=== PATIENT | female | born 1975 | race African-American/Black ===

== ENCOUNTER 2018-12-18 08:20 | Emergency (ER) | payer BC ==
[~2018-12-18] VITALS: Ht 160 cm; Wt 100.0 kg
[2018-12-18] MEDS ORDERED: IBUPROFEN 800MG TABLET PO ONE (09:15)
[2018-12-18 10:14] VITALS: BP 147/74
== END 2018-12-18 10:18 | disposition home or self-care (01) ==
LOC: ER 08:20
DX: S29.012A Strain of muscle and tendon of back wall of thorax, initial encounter (principal); V43.52XA Car driver injured in collision with other type car in traffic accident, initial encounter; Y93.89 Activity, other specified; Y92.488 Other paved roadways as the place of occurrence of the external cause; I10 Essential (primary) hypertension; M47.892 Other spondylosis, cervical region; E11.9 Type 2 diabetes mellitus without complications; F17.210 Nicotine dependence, cigarettes, uncomplicated; Z88.6 Allergy status to analgesic agent
CPT/HCPCS: 72040; 72070; 99283

== ENCOUNTER 2019-10-15 06:07 | Inpatient (IN) | payer BC ==
[~2019-10-15] VITALS: Ht 160 cm; Wt 96.2 kg
[2019-10-15] MEDS ORDERED: LACTATED RINGERS 1,000 ML IV SCH ×2 (06:30→13:30)
[2019-10-15] MEDS ORDERED: METHYLENE BLUE 50 MG/10 ML AMP IV ONE (06:31)
[2019-10-15] MEDS ORDERED: SKIN ADHESIVE 0.7 GM EA TOP ONE (06:31)
[2019-10-15] MEDS ORDERED: BUPIVACAINE HCL/EPINEPHRINE 0.5%/0.0005 30ML ONE (06:32)
[2019-10-15] MEDS ORDERED: VASOPRESSIN 20 UNIT/ML 1ML ONE (06:32)
[2019-10-15 06:55] LABS: BASOPHILS % 0.8 % (0.0-2.0); EOSINOPHILS % 2.6 % (0.0-5.0); HEMATOCRIT. 37.7 % (36.0-48.0); HEMOGLOBIN. 12.3 g/dL (12.0-16.0); LYMPHOCYTES % 30.1 % (20.0-50.0); MEAN CORPUSCULAR HEMOGLOBIN 26.6 pg (28.0-32.0); MEAN CORPUSCULAR VOLUME 81.7 fL (81.0-99.0); MONOCYTES % 7.9 % (2.0-8.0); NEUTROPHILS % 58.6 % (40.0-76.0); PLATELET 180 x1000/uL (130-400); RED BLOOD CELL COUNT 4.61 mill/uL (4.2-5.4); RED CELL DISTRIBUTION WIDTH 14.3 % (11.6-14.6)
[2019-10-15 06:55] LABS: CLARITY URINE CLEAR (CLEAR); COLOR URINE YELLOW (YELLOW); KETONES URINE NEGATIVE (NEGATIVE); LEUKOCYTE ESTERASE URINE NEGATIVE (NEGATIVE); NITRITE URINE NEGATIVE (NEGATIVE); OCCULT BLOOD URINE TRACE (NEGATIVE); PROTEIN URINE NEGATIVE (NEGATIVE); SPECIFIC GRAVITY URINE 1.016 (1.005-1.030); UROBILINOGEN URINE 0.2 E.U./dL (0.2-1.0)
[2019-10-15 07:00] LABS: CHLORIDE 103 mEq/L (98-107)
[2019-10-15 07:03] LABS: PARTIAL THROMBOPLASTIN TIME 26.1 sec (23.4-31.0); PROTHROMBIN TIME 10.3 sec (9.6-11.0)
[2019-10-15 07:05] LABS: UCG SCREEN NEGATIVE
[2019-10-15] MEDS ORDERED: SUCCINYLCHOLINE CHLORIDE 200MG/10ML IV ONE (07:41)
[2019-10-15] MEDS ORDERED: PHENYLEPHRINE HCL 10 MG/ML 1ML (IV VIAL) IV ONE (07:41)
[2019-10-15] MEDS ORDERED: FENTANYL CITRATE/PF 50MCG/ML 2ML VIAL ONE ×5 (07:41→11:25)
[2019-10-15] MEDS ORDERED: NEOSTIGMINE METHYLSULFATE 1MG/ML 10 ML VIAL ONE (07:41)
[2019-10-15] MEDS ORDERED: ONDANSETRON HCL 4MG/2ML INJ ONE (07:41)
[2019-10-15] MEDS ORDERED: EPHEDRINE SULFATE 50MG/ML VIAL ONE (07:41)
[2019-10-15] MEDS ORDERED: SODIUM CHLORIDE 0.9% 10ML VIAL ONE (07:41)
[2019-10-15] MEDS ORDERED: CEFAZOLIN SODIUM 1000MG/VIAL ONE (07:41)
[2019-10-15] MEDS ORDERED: METOCLOPRAMIDE HCL 10MG/2ML VIAL ONE (07:41)
[2019-10-15] MEDS ORDERED: PROPOFOL 200MG/20ML VIAL IV ONE ×2 (07:41→11:32)
[2019-10-15] MEDS ORDERED: ROCURONIUM BROMIDE 10MG/ML VIAL 5ML IV ONE ×2 (07:41→08:09)
[2019-10-15] MEDS ORDERED: DEXAMETHASONE 4MG/ML 1ML VIAL ONE (07:41)
[2019-10-15] MEDS ORDERED: MIDAZOLAM HCL 2 MG/2 ML VIAL ONE (07:41)
[2019-10-15] MEDS ORDERED: GLYCOPYRROLATE 0.2 MG/ML 2ML VIAL ONE (07:41)
[2019-10-15] MEDS ORDERED: ATOR-2 PO (09:49)
[2019-10-15] MEDS ORDERED: METF-414 PO (09:49)
[2019-10-15] MEDS ORDERED: TRAM50TA3 PO (09:49)
[2019-10-15] MEDS ORDERED: LISI-648 PO (09:49)
[2019-10-15] MEDS ORDERED: SODIUM CHLORIDE 0.9% 1,000 ML IV ONE (10:59)
[2019-10-15] MEDS ORDERED: MORPHINE SULFATE 2 MG/ML CPJ (NOT FOR IM USE) IV PRN (11:00)
[2019-10-15] MEDS ORDERED: MEPERIDINE HCL/PF 25MG/ML CPJ IV PRN ×2 (11:00)
[2019-10-15] MEDS ORDERED: ONDANSETRON HCL 4MG/2ML INJ IV PRN (11:00)
[2019-10-15] MEDS ORDERED: ONDANSETRON INJ IV PRN (13:45)
[2019-10-15] MEDS ORDERED: DIPHENHYDRAMINE INJ IV PRN (13:45)
[2019-10-15] MEDS ORDERED: NALOXONE INJ IV PRN (13:45)
[2019-10-15] MEDS: HYDROMORPHONE HCL/PF 2MG/ML CPJ IV PRN ×2 (13:54→14:05)
[2019-10-15] MEDS: HYDROMORPHONE PCA 10MG/50ML IV PRN (13:59)
[2019-10-15 15:30] VITALS: BP 148/90
[2019-10-15 16:00] VITALS: BP 148/90
[2019-10-15] MEDS: METFORMIN HCL 500MG TABLET PO SCH (18:26)
[2019-10-15] MEDS ORDERED: INFLUENZA VIRUS VACCINE(AFLURIA) 0.5ML SYR IM ONE (19:30)
[2019-10-15 20:00] VITALS: BP 125/76
[2019-10-16] VITALS: BP 135/90
[2019-10-16 04:00] VITALS: BP 132/82
[2019-10-16 07:49] LABS: BASOPHILS % 0.2 % (0.0-2.0); HEMATOCRIT. 33.1 % (36.0-48.0); HEMOGLOBIN. 10.5 g/dL (12.0-16.0); LYMPHOCYTES % 12.4 % (20.0-50.0); MEAN CORPUSCULAR HEMOGLOBIN 26.1 pg (28.0-32.0); MEAN CORPUSCULAR VOLUME 82.6 fL (81.0-99.0); MEAN PLATELET VOLUME 10.9 fl (7.4-10.4); MONOCYTES % 10.5 % (2.0-8.0); NEUTROPHILS % 76.9 % (40.0-76.0); PLATELET 181 x1000/uL (130-400); RED BLOOD CELL COUNT 4.01 mill/uL (4.2-5.4); RED CELL DISTRIBUTION WIDTH 14.5 % (11.6-14.6)
[2019-10-16] MEDS: LISINOPRIL 20MG TABLET PO SCH (09:54)
[2019-10-16] MEDS: METFORMIN HCL 500MG TABLET PO SCH ×2 (09:54→18:50)
[2019-10-16] MEDS: HYDROCHLOROTHIAZIDE 12.5MG CAPSULE PO SCH (09:54)
[2019-10-16 12:00] VITALS: BP 119/72
[2019-10-16 16:00] VITALS: BP 120/74
[2019-10-16] MEDS: HYDROMORPHONE PCA 10MG/50ML IV PRN (19:02)
[2019-10-16 20:00] VITALS: BP 114/70
[2019-10-17] VITALS: BP 114/55
[2019-10-17 04:00] VITALS: BP 119/68
[2019-10-17 08:00] VITALS: BP 153/98
[2019-10-17] MEDS: HYDROCHLOROTHIAZIDE 12.5MG CAPSULE PO SCH (08:32)
[2019-10-17] MEDS: METFORMIN HCL 500MG TABLET PO SCH (08:32)
[2019-10-17] MEDS: LISINOPRIL 20MG TABLET PO SCH (08:32)
[2019-10-17 12:00] VITALS: BP 132/85
[2019-10-17 12:39] VITALS: BP_SYST 132; BP_SYST 153; BP_DIAS 85; BP_DIAS 98
== END 2019-10-17 16:17 | disposition home or self-care (01) | DRG 743 ==
LOC: OR 06:07 → 6EST 06:08
PROVIDERS: ADMIT Obstetrics & Gynecology Obstetrics; ATTEND Obstetrics & Gynecology Obstetrics
PROC: 0UT94ZZ Resection of Uterus, Percutaneous Endoscopic Approach (ICD-10-PCS; principal; 2019-10-15)
PROC: 0DNW4ZZ Release Peritoneum, Percutaneous Endoscopic Approach (ICD-10-PCS; 2019-10-15)
PROC: 8E0W4CZ Robotic Assisted Procedure of Trunk Region, Percutaneous Endoscopic Approach (ICD-10-PCS; 2019-10-15)
DX: D25.9 Leiomyoma of uterus, unspecified (principal); E11.9 Type 2 diabetes mellitus without complications; E78.5 Hyperlipidemia, unspecified; G89.29 Other chronic pain; N73.6 Female pelvic peritoneal adhesions (postinfective); F17.210 Nicotine dependence, cigarettes, uncomplicated; N92.0 Excessive and frequent menstruation with regular cycle; I10 Essential (primary) hypertension; Z98.891 History of uterine scar from previous surgery; Z98.51 Tubal ligation status
CPT/HCPCS: 36415; 71045; 74021; 76000; 80048; 81003; 81025; 82962; 88300; 88302; 88307; 93005; J0171; J0330; J0690; J1100; J1170; J2175; J2250; J2370; J2405; J2704; J2710; J2765; J3010; J3490; Q9968

== ENCOUNTER 2020-09-21 06:46 | Emergency (ER) | payer BC ==
[~2020-09-21] VITALS: Ht 162.6 cm; Wt 103.0 kg
[~2020-09-21 06:46] MED LIST: ATOR-2 PO; LISI-648 PO; METF-414 PO; TRAM50TA3 PO
[2020-09-21] MEDS ORDERED: IBUPROFEN 600MG TABLET PO STA (07:21)
[2020-09-21 07:47] LABS: EOSINOPHILS % 1.4 % (0.0-5.0); HEMATOCRIT. 40.6 % (36.0-48.0); HEMOGLOBIN. 13.3 g/dL (12.0-16.0); LYMPHOCYTES % 42.5 % (20.0-50.0); MEAN CORPUSCULAR HEMOGLOBIN 26.8 pg (28.0-32.0); MEAN CORPUSCULAR VOLUME 81.9 fL (81.0-99.0); MEAN PLATELET VOLUME 10.5 fl (7.4-10.4); MONOCYTES % 11.2 % (2.0-8.0); NEUTROPHILS % 43.9 % (40.0-76.0); PLATELET 177 x1000/uL (130-400); RED BLOOD CELL COUNT 4.96 mill/uL (4.2-5.4); RED CELL DISTRIBUTION WIDTH 13.9 % (11.6-14.6)
[2020-09-21 08:05] LABS: CHLORIDE 101 mEq/L (98-107)
[2020-09-21] MEDS ORDERED: INSULIN REGULAR (HUMULIN R) 300UNITS/3ML SUBCUT ONE (09:15)
[2020-09-21 09:54] VITALS: BP 132/84
== END 2020-09-21 10:00 | disposition home or self-care (01) ==
LOC: ER 06:46
DX: R07.89 Other chest pain (principal); E11.65 Type 2 diabetes mellitus with hyperglycemia; F17.200 Nicotine dependence, unspecified, uncomplicated; I10 Essential (primary) hypertension; Z88.6 Allergy status to analgesic agent; Z79.899 Other long term (current) drug therapy; Z98.890 Other specified postprocedural states
CPT/HCPCS: 36415; 71045; 80053; 81025; 83880; 84484; 85025; 93005; 96372; 99285; J1815

== ENCOUNTER 2022-06-06 03:39 | Inpatient (IN) | payer BC ==
[~2022-06-06] VITALS: Ht 162.6 cm; Wt 109.3 kg
[~2022-06-06 03:39] MED LIST changes: +ALLO100T PO; +CHOL2000 PO; +INSU200I4 SQ; +LEVO50TA8 PO; -LISI-648 PO; +LOSA50TA41 PO; -METF-414 PO; +OLME1TAB88 MT; +SEMA0.25 SQ; +TRAM50TA PO; -TRAM50TA3 PO
[2022-06-06] MEDS ORDERED: ONDANSETRON HCL 4MG/2ML INJ IV ONE (05:30)
[2022-06-06] MEDS ORDERED: MORPHINE SULFATE 4 MG/ML CPJ (NOT FOR IM USE) IV ONE ×2 (05:30→08:45)
[2022-06-06 06:03] LABS: CHLORIDE 101 mEq/L (98-107)
[2022-06-06 06:12] LABS: ETHANOL BLOOD < 10 mg/dL
[2022-06-06 07:47] LABS: RED BLOOD CELL COUNT 4.95 mill/uL (4.2-5.4)
[2022-06-06 07:48] LABS: MEAN CORPUSCULAR VOLUME 80.7 fL (81.0-99.0)
[2022-06-06 07:49] LABS: MEAN CORPUSCULAR HEMOGLOBIN 26.5 pg (28.0-32.0)
[2022-06-06 07:50] LABS: HEMOGLOBIN. 13.1 g/dL (12.0-16.0); MEAN PLATELET VOLUME 10.6 fl (7.4-10.4); PLATELET 195 x1000/uL (130-400)
[2022-06-06 08:05] LABS: HCG SCREEN NEGATIVE; PLATELET ESTIMATE NORMAL
[2022-06-06 11:30] VITALS: BP 117/82
[2022-06-06 11:42] VITALS: BP 117/82
[2022-06-06] MEDS ORDERED: CLONIDINE 0.1MG TABLET PO PRN (12:15)
[2022-06-06] MEDS ORDERED: ENOXAPARIN 40MG/0.4ML SYR SUBCUT SCH (12:15)
[2022-06-06] MEDS: SODIUM CHLORIDE 0.9% 1,000 ML IV SCH ×3 (12:15→21:21)
[2022-06-06] MEDS ORDERED: ACETAMINOPHEN 325MG TABLET PO PRN (12:15)
[2022-06-06] MEDS ORDERED: MAGNESIUM/ALUMINUM HYDROXIDE/SIMETHICONE 30ML UDC PO PRN (12:15)
[2022-06-06] MEDS ORDERED: IPRATROPIUM/ALBUTEROL 0.5-3(2.5)MG/3ML NEB NEB PRN (12:15)
[2022-06-06] MEDS ORDERED: NALOXONE HCL 0.4MG/ML VIAL IV PRN (12:30)
[2022-06-06] MEDS ORDERED: DEXTROSE 50% WATER 50ML SYRINGE IV PRN (12:30)
[2022-06-06] MEDS: MORPHINE SULFATE 2 MG/ML CPJ (NOT FOR IM USE) IV PRN ×4 (12:45→21:02)
[2022-06-06] MEDS: ENOXAPARIN 30MG/0.3ML SYR SUBCUT SCH ×2 (12:46→21:03)
[2022-06-06] MEDS: INSULIN LISPRO 100 UNITS/ML SUBCUT SCH ×3 (13:39→21:20)
[2022-06-06] MEDS: INSULIN GLARGINE 100 UNITS/ML SUBCUT SCH (13:40)
[2022-06-06 16:00] VITALS: BP 95/59
[2022-06-06] MEDS: DICLOFENAC SODIUM 1% GEL 50GM TOP SCH ×3 (16:03→21:00)
[2022-06-06] MEDS: BLOOD SUGAR DIAGNOSTIC STRIP TEST SCH ×2 (17:32→21:21)
[2022-06-06 20:00] VITALS: BP 98/64
[2022-06-06] MEDS: ONDANSETRON HCL 4MG/2ML INJ IV PRN (21:02)
[2022-06-06] MEDS: ATORVASTATIN CALCIUM 40MG TABLET PO SCH (21:03)
[2022-06-07] VITALS: BP 95/62
[2022-06-07] MEDS: SODIUM CHLORIDE 0.9% 1,000 ML IV SCH ×6 (00:53→21:04)
[2022-06-07 04:00] VITALS: BP_SYST 130; BP_SYST 95; BP_DIAS 52; BP_DIAS 66
[2022-06-07] MEDS: BLOOD SUGAR DIAGNOSTIC STRIP TEST SCH ×4 (06:36→21:36)
[2022-06-07] MEDS: MORPHINE SULFATE 2 MG/ML CPJ (NOT FOR IM USE) IV PRN ×4 (07:11→22:28)
[2022-06-07] MEDS: LEVOTHYROXINE SODIUM 50MCG TABLET PO SCH (07:44)
[2022-06-07] MEDS: INSULIN LISPRO 100 UNITS/ML SUBCUT SCH ×4 (07:50→21:23)
[2022-06-07 08:00] VITALS: BP 98/54
[2022-06-07 08:23] LABS: HEMATOCRIT. 35.9 % (36.0-48.0); HEMOGLOBIN. 12.1 g/dL (12.0-16.0); MEAN CORPUSCULAR HEMOGLOBIN 27.4 pg (28.0-32.0); MEAN CORPUSCULAR VOLUME 81.6 fL (81.0-99.0); PLATELET 160 x1000/uL (130-400); RED CELL DISTRIBUTION WIDTH 14.1 % (11.6-14.6)
[2022-06-07] MEDS: DICLOFENAC SODIUM 1% GEL 50GM TOP SCH ×4 (09:00→21:05)
[2022-06-07] MEDS ORDERED: SODIUM POLYSTYRENE SULFONATE 15 G/60 ML BOT PO NR ×2 (09:15→09:30)
[2022-06-07] MEDS ORDERED: FUROSEMIDE 100MG/10ML VIAL IV NR (09:26)
[2022-06-07] MEDS ORDERED: CALCIUM CHLORIDE 1GM/10ML SYR IV NR (09:30)
[2022-06-07] MEDS ORDERED: DEXTROSE 50% WATER 50ML SYRINGE IV NR (09:30)
[2022-06-07] MEDS ORDERED: ALBUTEROL (0.083%) 2.5MG/3ML NEB HHN NR (09:30)
[2022-06-07] MEDS ORDERED: SODIUM BICARBONATE 8.4% 1 MEQ/ML 50ML SYR IV NR (09:30)
[2022-06-07] MEDS: LIDOCAINE 5% PATCH TOP SCH (10:15)
[2022-06-07] MEDS: INSULIN GLARGINE 100 UNITS/ML SUBCUT SCH (10:17)
[2022-06-07] MEDS: ENOXAPARIN 30MG/0.3ML SYR SUBCUT SCH ×2 (10:59→21:06)
[2022-06-07] MEDS ORDERED: INSULIN REGULAR (HUMULIN R) UD 100 UNITS/ML SYR IV NR (11:00)
[2022-06-07 12:00] VITALS: BP 102/64
[2022-06-07] MEDS ORDERED: CALCIUM GLUCONATE 1GM PREMIX 50 ML IV SCH (15:00)
[2022-06-07 16:00] VITALS: BP 113/66
[2022-06-07 20:27] LABS: HEMATOCRIT. 34.4 % (36.0-48.0); HEMOGLOBIN. 11.3 g/dL (12.0-16.0); MEAN CORPUSCULAR HEMOGLOBIN 27.2 pg (28.0-32.0); MEAN PLATELET VOLUME 11.9 fl (7.4-10.4); PLATELET 167 x1000/uL (130-400); RED BLOOD CELL COUNT 4.15 mill/uL (4.2-5.4); RED CELL DISTRIBUTION WIDTH 14.2 % (11.6-14.6)
[2022-06-07 20:40] LABS: HCG SCREEN NEGATIVE
[2022-06-07 20:45] VITALS: BP 90/44
[2022-06-07 21:16] LABS: CHLORIDE 97 mEq/L (98-107)
[2022-06-07] MEDS: ATORVASTATIN CALCIUM 40MG TABLET PO SCH (21:21)
[2022-06-07 21:25] LABS: PHOSPHORUS 3.4 mg/dL (2.5-4.9)
[2022-06-07] MEDS: CEFEPIME 2,000 MG in DEXT 5% WATER 100 ML IV SCH (22:12)
[2022-06-07] MEDS: METRONIDAZOLE 500MG TABLET PO SCH (22:16)
[2022-06-07] MEDS: ONDANSETRON HCL 4MG/2ML INJ IV PRN (22:29)
[2022-06-07 23:00] LABS: PLATELET ESTIMATE NORMAL
[2022-06-07 23:10] LABS: PLATELET ESTIMATE NORMAL
[2022-06-08 00:18] VITALS: BP 112/62
[2022-06-08] MEDS ORDERED: MAGNESIUM 2 G PREMIX 50 ML IV NR (01:00)
[2022-06-08] MEDS ORDERED: CALCIUM GLUCONATE 1GM PREMIX 50 ML IV NR (01:00)
[2022-06-08] MEDS: MORPHINE SULFATE 2 MG/ML CPJ (NOT FOR IM USE) IV PRN ×3 (03:03→17:41)
[2022-06-08 04:00] VITALS: BP_SYST 100; BP_SYST 112; BP_DIAS 63; BP_DIAS 66
[2022-06-08] MEDS: METRONIDAZOLE 500MG TABLET PO SCH ×3 (05:46→23:01)
[2022-06-08 06:43] LABS: HEMOGLOBIN. 11.1 g/dL (12.0-16.0); MEAN CORPUSCULAR HEMOGLOBIN 26.7 pg (28.0-32.0); MEAN CORPUSCULAR VOLUME 81.8 fL (81.0-99.0); MEAN PLATELET VOLUME 11.3 fl (7.4-10.4); PLATELET 143 x1000/uL (130-400); RED BLOOD CELL COUNT 4.16 mill/uL (4.2-5.4); RED CELL DISTRIBUTION WIDTH 14.4 % (11.6-14.6)
[2022-06-08 06:46] LABS: PHOSPHORUS 3.9 mg/dL (2.5-4.9)
[2022-06-08] MEDS: BLOOD SUGAR DIAGNOSTIC STRIP TEST SCH ×4 (07:40→21:51)
[2022-06-08 08:00] VITALS: BP 102/55
[2022-06-08] MEDS: SODIUM CHLORIDE 0.9% 1,000 ML IV SCH ×2 (09:17→17:35)
[2022-06-08] MEDS: CEFEPIME 2,000 MG in DEXT 5% WATER 100 ML IV SCH ×2 (09:17→21:52)
[2022-06-08] MEDS: ENOXAPARIN 30MG/0.3ML SYR SUBCUT SCH (09:17)
[2022-06-08] MEDS: LEVOTHYROXINE SODIUM 50MCG TABLET PO SCH (09:17)
[2022-06-08] MEDS: DICLOFENAC SODIUM 1% GEL 50GM TOP SCH ×4 (09:18→21:51)
[2022-06-08] MEDS: LIDOCAINE 5% PATCH TOP SCH (09:18)
[2022-06-08] MEDS: INSULIN GLARGINE 100 UNITS/ML SUBCUT SCH (09:19)
[2022-06-08] MEDS: INSULIN LISPRO 100 UNITS/ML SUBCUT SCH ×4 (09:25→22:00)
[2022-06-08] MEDS ORDERED: CALCIUM GLUCONATE 1GM PREMIX 50 ML IV SCH (09:30)
[2022-06-08 11:18] LABS: CLARITY URINE TURBID (CLEAR); COLOR URINE DARK YELLOW (YELLOW); KETONES URINE TRACE (NEGATIVE); LEUKOCYTE ESTERASE URINE TRACE (NEGATIVE); NITRITE URINE NEGATIVE (NEGATIVE); OCCULT BLOOD URINE 1+ (NEGATIVE); PROTEIN URINE 2+ (NEGATIVE); SPECIFIC GRAVITY URINE 1.022 (1.005-1.030); UROBILINOGEN URINE 0.2 E.U./dL (0.2-1.0)
[2022-06-08 12:00] VITALS: BP 110/70
[2022-06-08 13:03] LABS: BG BASE EXCESS -8.9 mmol/L (-2.0-2.0); BG CARBOXYHEMOGLOBIN 0.3 % (0.5-1.5); BG DEOXYHEMOGLOBIN 8.5 % (0.0-5.0); BG FRACTION INSPIRED OXYGEN 30; BG HCO3 ACT 17.6 mmol/L (22.0-26.0); BG METHEMOGLOBIN 0.3 % (0.0-1.5); BG OXYGEN SATURATION 91.4 % (92.0-98.5); BG OXYHEMOGLOBIN 90.9 % (94.0-97.0); BG PCO2 40.1 mmHg (35.0-45.0); BG PH 7.259 (7.350-7.450); BG PO2 65.3 mmHg (75.0-100.0); BG SAMPLE SITE RIGHT RADIAL; BG TOTAL HEMOGLOBIN 11.2 g/dL (12.0-18.0); BG VENT MODE NASAL CANNULA
[2022-06-08] MEDS: CALCIUM GLUCONATE 1GM PREMIX 50 ML IV SCH ×2 (13:44→21:52)
[2022-06-08 15:39] LABS: PLATELET ESTIMATE NORMAL
[2022-06-08 16:00] VITALS: BP 102/59
[2022-06-08 20:00] VITALS: BP 99/54
[2022-06-08] MEDS: ATORVASTATIN CALCIUM 40MG TABLET PO SCH (21:50)
[2022-06-08] MEDS ORDERED: INSULIN REGULAR 100U/100ML PMX 100 ML IV SCH (23:30)
[2022-06-08] MEDS ORDERED: DEXTROSE 50% WATER 50ML SYRINGE IV PRN ×2 (23:30)
[2022-06-08] MEDS ORDERED: BLOOD SUGAR DIAGNOSTIC STRIP TEST SCH (23:30)
[2022-06-09] VITALS (38 sets, daily range): BP systolic 97–150; BP diastolic 52–100
[2022-06-09] MEDS ORDERED: DEXT 5%/0.9% NACL KCL 20MEQ/L 1,000 ML IV ONE ×2 (01:00→15:45)
[2022-06-09] MEDS: SODIUM CHLORIDE 0.9% 1,000 ML IV SCH ×2 (01:42→08:43)
[2022-06-09] MEDS: ONDANSETRON HCL 4MG/2ML INJ IV PRN ×2 (02:53→21:51)
[2022-06-09] MEDS: MORPHINE SULFATE 2 MG/ML CPJ (NOT FOR IM USE) IV PRN ×3 (02:54→14:13)
[2022-06-09] MEDS: METRONIDAZOLE 500MG TABLET PO SCH ×3 (05:37→21:51)
[2022-06-09] MEDS: CALCIUM GLUCONATE 1GM PREMIX 50 ML IV SCH ×3 (05:38→21:48)
[2022-06-09] MEDS: BLOOD SUGAR DIAGNOSTIC STRIP TEST SCH ×10 (06:15→23:01)
[2022-06-09 06:32] LABS: HEMATOCRIT. 30.2 % (36.0-48.0); MEAN CORPUSCULAR HEMOGLOBIN 26.8 pg (28.0-32.0); MEAN CORPUSCULAR VOLUME 81.2 fL (81.0-99.0); MEAN PLATELET VOLUME 10.6 fl (7.4-10.4); PLATELET 134 x1000/uL (130-400); RED BLOOD CELL COUNT 3.72 mill/uL (4.2-5.4); RED CELL DISTRIBUTION WIDTH 14.2 % (11.6-14.6)
[2022-06-09 07:00] LABS: CHLORIDE 98 mEq/L (98-107)
[2022-06-09 07:19] LABS: HDL CHOLESTEROL 14 mg/dL (40-59); LDL CHOLESTEROL 25 mg/dL (5-100); PHOSPHORUS 4.9 mg/dL (2.5-4.9)
[2022-06-09] MEDS: INSULIN LISPRO 100 UNITS/ML SUBCUT SCH ×2 (08:09→13:04)
[2022-06-09] MEDS ORDERED: INSULIN GLARGINE 100 UNITS/ML SUBCUT SCH (10:00)
[2022-06-09] MEDS: CEFEPIME 2,000 MG in DEXT 5% WATER 100 ML IV SCH ×2 (11:14→21:47)
[2022-06-09] MEDS: ENOXAPARIN 40MG/0.4ML SYR SUBCUT SCH (11:14)
[2022-06-09] MEDS: LIDOCAINE 5% PATCH TOP SCH (11:14)
[2022-06-09] MEDS: LEVOTHYROXINE SODIUM 50MCG TABLET PO SCH (11:14)
[2022-06-09] MEDS ORDERED: SODIUM BICARBONATE 8.4% 1 MEQ/ML 50ML SYR IV NR (15:30)
[2022-06-09] MEDS ORDERED: SODIUM BICARBONATE 150 MEQ in DEXTROSE 5% WATER 1,000 ML IV SCH (16:00)
[2022-06-09] MEDS: INSULIN REGULAR 100U/100ML PMX 100 ML IV SCH ×2 (16:29→21:52)
[2022-06-09 16:57] LABS: HEMATOCRIT. 30.4 % (36.0-48.0); HEMOGLOBIN. 10.2 g/dL (12.0-16.0); MEAN CORPUSCULAR HEMOGLOBIN 26.9 pg (28.0-32.0); MEAN CORPUSCULAR VOLUME 80.6 fL (81.0-99.0); MEAN PLATELET VOLUME 10.5 fl (7.4-10.4); PLATELET 170 x1000/uL (130-400); RED BLOOD CELL COUNT 3.77 mill/uL (4.2-5.4); RED CELL DISTRIBUTION WIDTH 14.6 % (11.6-14.6)
[2022-06-09 18:10] LABS: INR 1.1; PARTIAL THROMBOPLASTIN TIME 35.6 sec (23.4-31.0); PROTHROMBIN TIME 11.4 sec (9.6-11.0)
[2022-06-09 18:33] LABS: HEPATITIS B SURFACE ANTIGEN NEGATIVE
[2022-06-09] MEDS ORDERED: INSULIN REGULAR 100U/100ML PMX 100 ML IV SCH ×3 (18:35→21:04)
[2022-06-09] MEDS ORDERED: LIDOCAINE HCL 1% 10 MG/ML 10ML VIAL ONE (18:52)
[2022-06-09] MEDS ORDERED: FENOFIBRATE NANOCRYSTALLIZED 48MG TABLET PO NR (19:30)
[2022-06-09] MEDS: IPRATROPIUM/ALBUTEROL 0.5-3(2.5)MG/3ML NEB HHN SCH (20:00)
[2022-06-09] MEDS ORDERED: WATER IV SCH (21:30)
[2022-06-09] MEDS ORDERED: SODIUM BICARBONATE IV SCH (21:30)
[2022-06-09] MEDS ORDERED: SODIUM BICARBONATE 150 MEQ in DEXT 10% WATER 1,000 ML IV SCH (21:30)
[2022-06-09] MEDS ORDERED: DEXTROSE 10% IV SCH (21:30)
[2022-06-09] MEDS: ATORVASTATIN CALCIUM 40MG TABLET PO SCH (21:51)
[2022-06-09] MEDS: KETOROLAC 15MG/ML VIAL IV PRN (22:25)
[2022-06-09 22:42] LABS: PLATELET ESTIMATE NORMAL
[2022-06-09 22:54] LABS: PLATELET ESTIMATE NORMAL
[2022-06-10] VITALS (73 sets, daily range): BP systolic 101–159; BP diastolic 24–88
[2022-06-10] MEDS: BLOOD SUGAR DIAGNOSTIC STRIP TEST SCH ×24 (00:13→23:47)
[2022-06-10] MEDS: MORPHINE SULFATE 4 MG/ML CPJ (NOT FOR IM USE) IV PRN ×2 (00:25→21:06)
[2022-06-10] MEDS: IPRATROPIUM/ALBUTEROL 0.5-3(2.5)MG/3ML NEB HHN SCH ×6 (01:11→20:05)
[2022-06-10] MEDS: KCL 20MEQ/100ML PREMIX 100 ML IV SCH ×3 (01:30→04:45)
[2022-06-10] MEDS ORDERED: INSULIN REGULAR 100U/100ML PMX 100 ML IV SCH (01:38)
[2022-06-10 05:42] LABS: HEMATOCRIT. 30.4 % (36.0-48.0); HEMOGLOBIN. 9.8 g/dL (12.0-16.0); MEAN CORPUSCULAR HEMOGLOBIN 26.2 pg (28.0-32.0); MEAN CORPUSCULAR VOLUME 81.2 fL (81.0-99.0); MEAN PLATELET VOLUME 10.3 fl (7.4-10.4); PLATELET 164 x1000/uL (130-400); RED BLOOD CELL COUNT 3.75 mill/uL (4.2-5.4); RED CELL DISTRIBUTION WIDTH 14.5 % (11.6-14.6)
[2022-06-10 05:43] LABS: CHLORIDE 95 mEq/L (98-107)
[2022-06-10] MEDS: CALCIUM GLUCONATE 1GM PREMIX 50 ML IV SCH ×2 (05:53→21:34)
[2022-06-10] MEDS: METRONIDAZOLE 500MG TABLET PO SCH ×3 (05:53→21:03)
[2022-06-10] MEDS: KETOROLAC 15MG/ML VIAL IV PRN (05:53)
[2022-06-10 05:55] LABS: PHOSPHORUS 5.6 mg/dL (2.5-4.9)
[2022-06-10] MEDS: LEVOTHYROXINE SODIUM 50MCG TABLET PO SCH (06:30)
[2022-06-10] MEDS: CEFEPIME 2,000 MG in DEXT 5% WATER 100 ML IV SCH ×2 (08:35→21:04)
[2022-06-10] MEDS: ENOXAPARIN 40MG/0.4ML SYR SUBCUT SCH (08:36)
[2022-06-10] MEDS: FENOFIBRATE NANOCRYSTALLIZED 145MG TABLET PO SCH (08:37)
[2022-06-10] MEDS: LIDOCAINE 5% PATCH TOP SCH (08:43)
[2022-06-10] MEDS: HYDROXYZINE 25MG TABLET PO PRN ×2 (08:55→16:21)
[2022-06-10] MEDS: SODIUM CHLORIDE 23.4% 154 MEQ in DEXT 10% WATER 1,000 ML IV SCH (08:59)
[2022-06-10 16:14] LABS: BG BASE EXCESS -2.5 mmol/L (-2.0-2.0); BG CARBOXYHEMOGLOBIN 0.3 % (0.5-1.5); BG DEOXYHEMOGLOBIN 5.3 % (0.0-5.0); BG FRACTION INSPIRED OXYGEN 100; BG HCO3 ACT 22.9 mmol/L (22.0-26.0); BG METHEMOGLOBIN 0.2 % (0.0-1.5); BG OXYGEN SATURATION 94.7 % (92.0-98.5); BG OXYHEMOGLOBIN 94.2 % (94.0-97.0); BG PCO2 41.8 mmHg (35.0-45.0); BG PH 7.356 (7.350-7.450); BG PO2 75.4 mmHg (75.0-100.0); BG SAMPLE SITE RIGHT RADIAL; BG TOTAL HEMOGLOBIN 11.4 g/dL (12.0-18.0); BG VENT MODE HIGH FLOW
[2022-06-10] MEDS: ACETAMINOPHEN 325MG TABLET PO PRN (16:42)
[2022-06-10] MEDS ORDERED: HYDROXYZINE 25MG TABLET PO PRN (19:15)
[2022-06-10] MEDS: ATORVASTATIN CALCIUM 40MG TABLET PO SCH (21:03)
[2022-06-10 22:30] LABS: PLATELET ESTIMATE NORMAL
[2022-06-11] VITALS (75 sets, daily range): BP systolic 95–160; BP diastolic 59–97
[2022-06-11] MEDS: IPRATROPIUM/ALBUTEROL 0.5-3(2.5)MG/3ML NEB HHN SCH ×6 (00:26→20:20)
[2022-06-11] MEDS: BLOOD SUGAR DIAGNOSTIC STRIP TEST SCH ×18 (01:43→21:14)
[2022-06-11 05:17] LABS: HEMATOCRIT. 26.5 % (36.0-48.0); HEMOGLOBIN. 8.8 g/dL (12.0-16.0); MEAN CORPUSCULAR HEMOGLOBIN 26.3 pg (28.0-32.0); MEAN CORPUSCULAR VOLUME 79.6 fL (81.0-99.0); MEAN PLATELET VOLUME 10.3 fl (7.4-10.4); PLATELET 163 x1000/uL (130-400); RED BLOOD CELL COUNT 3.34 mill/uL (4.2-5.4); RED CELL DISTRIBUTION WIDTH 14.7 % (11.6-14.6)
[2022-06-11 05:30] LABS: CHLORIDE 101 mEq/L (98-107)
[2022-06-11 05:40] LABS: HDL CHOLESTEROL 17 mg/dL (40-59); LDL CHOLESTEROL 29 mg/dL (5-100); PHOSPHORUS 5.1 mg/dL (2.5-4.9)
[2022-06-11] MEDS: METRONIDAZOLE 500MG TABLET PO SCH ×2 (05:44→13:15)
[2022-06-11] MEDS: ACETAMINOPHEN 325MG TABLET PO PRN (05:44)
[2022-06-11] MEDS: LEVOTHYROXINE SODIUM 50MCG TABLET PO SCH (07:05)
[2022-06-11] MEDS: CEFEPIME 2,000 MG in DEXT 5% WATER 100 ML IV SCH ×2 (08:15→22:14)
[2022-06-11] MEDS: CALCIUM GLUCONATE 1GM PREMIX 50 ML IV SCH (08:15)
[2022-06-11] MEDS: SODIUM CHLORIDE 23.4% 154 MEQ in DEXT 10% WATER 1,000 ML IV SCH (09:57)
[2022-06-11] MEDS: FENOFIBRATE NANOCRYSTALLIZED 145MG TABLET PO SCH (10:15)
[2022-06-11 10:18] LABS: BG BASE EXCESS -3.3 mmol/L (-2.0-2.0); BG CARBOXYHEMOGLOBIN 0.2 % (0.5-1.5); BG FRACTION INSPIRED OXYGEN 100; BG HCO3 ACT 22.6 mmol/L (22.0-26.0); BG METHEMOGLOBIN 0.9 % (0.0-1.5); BG OXYHEMOGLOBIN 95.9 % (94.0-97.0); BG PCO2 44.7 mmHg (35.0-45.0); BG PH 7.322 (7.350-7.450); BG PO2 103.6 mmHg (75.0-100.0); BG SAMPLE SITE RIGHT RADIAL; BG TOTAL HEMOGLOBIN 9.9 g/dL (12.0-18.0); BG VENT MODE HIGH FLOW
[2022-06-11 10:21] LABS: NUCLEATED RED BLOOD CELLS 1 /100 WBC
[2022-06-11 10:22] LABS: PLATELET ESTIMATE NORMAL
[2022-06-11] MEDS ORDERED: AZITHROMYCIN 500 MG TABLET PO SCH (10:30)
[2022-06-11] MEDS: LIDOCAINE 5% PATCH TOP SCH (10:31)
[2022-06-11] MEDS: MORPHINE SULFATE 4 MG/ML CPJ (NOT FOR IM USE) IV PRN ×3 (10:33→23:56)
[2022-06-11] MEDS: ENOXAPARIN 40MG/0.4ML SYR SUBCUT SCH (10:41)
[2022-06-11] MEDS ORDERED: AZITHROMYCIN 250 MG TABLET PO SCH (11:00)
[2022-06-11] MEDS: AZITHROMYCIN 500 MG in DEXT 5% WATER 250 ML IV SCH (12:00)
[2022-06-11] MEDS: METRONIDAZOLE 500 MG PREMIX 100 ML IV SCH ×2 (14:34→22:14)
[2022-06-11] MEDS ORDERED: DEXTROSE 50% WATER 50ML SYRINGE IV PRN (17:00)
[2022-06-11] MEDS ORDERED: INSULIN LISPRO 100 UNITS/ML SUBCUT SCH (17:00)
[2022-06-11] MEDS: ATORVASTATIN CALCIUM 40MG TABLET PO SCH ×2 (20:02→21:00)
[2022-06-11] MEDS: ONDANSETRON HCL 4MG/2ML INJ IV PRN (20:02)
[2022-06-11 20:20] LABS: TOTAL IRON BINDING CAPACITY 179 ug/dL (250-450)
[2022-06-11] MEDS ORDERED: LIDOCAINE HCL/PF 1% 2ML VIAL ONE (20:36)
[2022-06-11] MEDS ORDERED: BLOOD SUGAR DIAGNOSTIC STRIP TEST SCH (21:00)
[2022-06-11] MEDS: INSULIN LISPRO 100 UNITS/ML SUBCUT SCH (21:00)
[2022-06-11 21:18] LABS: BG BASE EXCESS -0.5 mmol/L (-2.0-2.0); BG CARBOXYHEMOGLOBIN 0.3 % (0.5-1.5); BG DEOXYHEMOGLOBIN 5.6 % (0.0-5.0); BG FRACTION INSPIRED OXYGEN 80; BG HCO3 ACT 24.5 mmol/L (22.0-26.0); BG METHEMOGLOBIN 0.3 % (0.0-1.5); BG OXYGEN SATURATION 94.4 % (92.0-98.5); BG OXYHEMOGLOBIN 93.8 % (94.0-97.0); BG PH 7.384 (7.350-7.450); BG SAMPLE SITE RIGHT RADIAL; BG TOTAL HEMOGLOBIN 9.9 g/dL (12.0-18.0); BG VENT MODE HIGH FLOW
[2022-06-12] VITALS (86 sets, daily range): BP systolic 89–176; BP diastolic 55–91
[2022-06-12] MEDS: IPRATROPIUM/ALBUTEROL 0.5-3(2.5)MG/3ML NEB HHN SCH ×6 (00:16→21:35)
[2022-06-12] MEDS: BLOOD SUGAR DIAGNOSTIC STRIP TEST SCH ×4 (05:02→21:00)
[2022-06-12] MEDS: METRONIDAZOLE 500 MG PREMIX 100 ML IV SCH ×3 (05:03→22:07)
[2022-06-12] MEDS: LEVOTHYROXINE SODIUM 50MCG TABLET PO SCH (06:30)
[2022-06-12] MEDS: INSULIN LISPRO 100 UNITS/ML SUBCUT SCH ×4 (06:34→22:04)
[2022-06-12] MEDS ORDERED: DIATR MEGLU/DIATRIZOATE SOLN 30ML PO NR (07:00)
[2022-06-12 08:28] LABS: BG BASE EXCESS -3.3 mmol/L (-2.0-2.0); BG CARBOXYHEMOGLOBIN 0.3 % (0.5-1.5); BG DEOXYHEMOGLOBIN 1.4 % (0.0-5.0); BG FRACTION INSPIRED OXYGEN 90; BG HCO3 ACT 22.1 mmol/L (22.0-26.0); BG METHEMOGLOBIN 0.5 % (0.0-1.5); BG OXYGEN SATURATION 98.6 % (92.0-98.5); BG OXYHEMOGLOBIN 97.8 % (94.0-97.0); BG PCO2 40.7 mmHg (35.0-45.0); BG PH 7.352 (7.350-7.450); BG PO2 132.1 mmHg (75.0-100.0); BG SAMPLE SITE RIGHT RADIAL; BG TOTAL HEMOGLOBIN 9.4 g/dL (12.0-18.0); BG VENT MODE HIGH FLOW
[2022-06-12] MEDS: CEFEPIME 2,000 MG in DEXT 5% WATER 100 ML IV SCH ×2 (09:10→21:57)
[2022-06-12] MEDS: FENOFIBRATE NANOCRYSTALLIZED 145MG TABLET PO SCH (09:10)
[2022-06-12] MEDS: LIDOCAINE 5% PATCH TOP SCH (09:11)
[2022-06-12] MEDS: ENOXAPARIN 40MG/0.4ML SYR SUBCUT SCH (09:12)
[2022-06-12] MEDS: INSULIN GLARGINE 100 UNITS/ML SUBCUT SCH (10:00)
[2022-06-12] MEDS ORDERED: SODIUM CHLORIDE 10% FOR INH 15ML VIAL NEB INH NR ×2 (12:00→23:00)
[2022-06-12] MEDS: AZITHROMYCIN 500 MG in DEXT 5% WATER 250 ML IV SCH (13:35)
[2022-06-12] MEDS: METHYLPREDNISOLONE SOD SUCC 40 MG/ML VIAL IV SCH ×2 (13:44→22:05)
[2022-06-12 17:19] LABS: HEMATOCRIT. 28.6 % (36.0-48.0); HEMOGLOBIN. 9.2 g/dL (12.0-16.0); MEAN CORPUSCULAR VOLUME 80.8 fL (81.0-99.0); PLATELET 184 x1000/uL (130-400); RED BLOOD CELL COUNT 3.54 mill/uL (4.2-5.4); RED CELL DISTRIBUTION WIDTH 15.4 % (11.6-14.6)
[2022-06-12 17:37] LABS: PHOSPHORUS 2.4 mg/dL (2.5-4.9)
[2022-06-12 20:58] LABS: *AMPHETAMINES SCREEN URINE NEGATIVE (NEGATIVE); *BARBITURATES SCREEN URINE NEGATIVE (NEGATIVE); *BENZODIAZEPINES SCREEN URINE NEGATIVE (NEGATIVE); *COCAINE SCREEN URINE NEGATIVE (NEGATIVE); CANNABINOID URINE SCREEN NEGATIVE (NEGATIVE); METHADONE URINE SCREEN NEGATIVE (NEGATIVE); PHENCYCLIDINE URINE SCREEN NEGATIVE (NEGATIVE)
[2022-06-12 21:01] LABS: OPIATES URINE SCREEN PRESUMTIVE POSITIVE (NEGATIVE)
[2022-06-12 21:36] LABS: PLATELET ESTIMATE NORMAL
[2022-06-12] MEDS: ATORVASTATIN CALCIUM 40MG TABLET PO SCH (21:57)
[2022-06-13] VITALS (58 sets, daily range): BP systolic 102–165; BP diastolic 28–103
[2022-06-13] MEDS: IPRATROPIUM/ALBUTEROL 0.5-3(2.5)MG/3ML NEB HHN SCH ×6 (01:07→21:06)
[2022-06-13 02:31] LABS: BG BASE EXCESS -3.6 mmol/L (-2.0-2.0); BG CARBOXYHEMOGLOBIN 0.3 % (0.5-1.5); BG FRACTION INSPIRED OXYGEN 90; BG HCO3 ACT 21.2 mmol/L (22.0-26.0); BG METHEMOGLOBIN 0.5 % (0.0-1.5); BG OXYHEMOGLOBIN 98.2 % (94.0-97.0); BG PCO2 37.2 mmHg (35.0-45.0); BG PH 7.374 (7.350-7.450); BG PO2 162.7 mmHg (75.0-100.0); BG SAMPLE SITE RIGHT RADIAL; BG TOTAL HEMOGLOBIN 8.5 g/dL (12.0-18.0); BG VENT MODE HIGH FLOW
[2022-06-13] MEDS: METHYLPREDNISOLONE SOD SUCC 40 MG/ML VIAL IV SCH ×3 (06:10→21:08)
[2022-06-13] MEDS: METRONIDAZOLE 500 MG PREMIX 100 ML IV SCH ×2 (06:11→14:52)
[2022-06-13] MEDS: LEVOTHYROXINE SODIUM 50MCG TABLET PO SCH (06:12)
[2022-06-13] MEDS: BLOOD SUGAR DIAGNOSTIC STRIP TEST SCH ×4 (06:12→20:22)
[2022-06-13] MEDS: INSULIN LISPRO 100 UNITS/ML SUBCUT SCH ×4 (06:14→20:30)
[2022-06-13 06:23] LABS: HEMATOCRIT. 26.4 % (36.0-48.0); HEMOGLOBIN. 8.4 g/dL (12.0-16.0); MEAN CORPUSCULAR HEMOGLOBIN 25.8 pg (28.0-32.0); MEAN PLATELET VOLUME 8.9 fl (7.4-10.4); PLATELET 148 x1000/uL (130-400); RED BLOOD CELL COUNT 3.26 mill/uL (4.2-5.4); RED CELL DISTRIBUTION WIDTH 15.5 % (11.6-14.6)
[2022-06-13 07:00] LABS: PHOSPHORUS 5.6 mg/dL (2.5-4.9)
[2022-06-13 08:17] LABS: CLARITY URINE TURBID (CLEAR); COLOR URINE DARK YELLOW (YELLOW); KETONES URINE 1+ (NEGATIVE); LEUKOCYTE ESTERASE URINE 1+ (NEGATIVE); NITRITE URINE POSITIVE (NEGATIVE); OCCULT BLOOD URINE 3+ (NEGATIVE); PROTEIN URINE 3+ (NEGATIVE); SPECIFIC GRAVITY URINE 1.039 (1.005-1.030); UROBILINOGEN URINE 0.2 E.U./dL (0.2-1.0)
[2022-06-13 08:45] LABS: BG BASE EXCESS -5.2 mmol/L (-2.0-2.0); BG CARBOXYHEMOGLOBIN 0.3 % (0.5-1.5); BG DEOXYHEMOGLOBIN 0.6 % (0.0-5.0); BG FRACTION INSPIRED OXYGEN 90; BG HCO3 ACT 19.8 mmol/L (22.0-26.0); BG METHEMOGLOBIN 0.4 % (0.0-1.5); BG OXYGEN SATURATION 99.4 % (92.0-98.5); BG OXYHEMOGLOBIN 98.7 % (94.0-97.0); BG PCO2 36.4 mmHg (35.0-45.0); BG PH 7.353 (7.350-7.450); BG PO2 201.9 mmHg (75.0-100.0); BG SAMPLE SITE LEFT RADIAL; BG TOTAL HEMOGLOBIN 9.4 g/dL (12.0-18.0); BG VENT MODE HIGH FLOW
[2022-06-13] MEDS: LIDOCAINE 5% PATCH TOP SCH (08:59)
[2022-06-13] MEDS: CEFEPIME 2,000 MG in DEXT 5% WATER 100 ML IV SCH (08:59)
[2022-06-13] MEDS: ENOXAPARIN 40MG/0.4ML SYR SUBCUT SCH (09:00)
[2022-06-13 10:52] LABS: PLATELET ESTIMATE NORMAL
[2022-06-13] MEDS: INSULIN GLARGINE 100 UNITS/ML SUBCUT SCH (10:58)
[2022-06-13] MEDS: AZITHROMYCIN 500 MG in DEXT 5% WATER 250 ML IV SCH (11:00)
[2022-06-13] MEDS ORDERED: LACTULOSE 20G/30ML UDC PO PRN (12:30)
[2022-06-13] MEDS ORDERED: MEROPENEM 500 MG in SODIUM CHLORIDE 0.9% 50 ML IV SCH (14:30)
[2022-06-13] MEDS: FOLIC ACID/VITAMIN B COMP W-C TABLET PO SCH (14:51)
[2022-06-13] MEDS: DOCUSATE SODIUM SUGAR FREE 100MG/10ML UDC NG SCH (14:52)
[2022-06-13] MEDS: MEROPENEM 500MG in NORMAL SALINE 50ML IV SCH (17:47)
[2022-06-13] MEDS: ATORVASTATIN CALCIUM 40MG TABLET PO SCH (20:30)
[2022-06-14] VITALS (52 sets, daily range): BP systolic 111–168; BP diastolic 53–109
[2022-06-14] MEDS: IPRATROPIUM/ALBUTEROL 0.5-3(2.5)MG/3ML NEB HHN SCH ×6 (01:15→20:45)
[2022-06-14] MEDS: METHYLPREDNISOLONE SOD SUCC 40 MG/ML VIAL IV SCH ×3 (05:21→23:58)
[2022-06-14] MEDS: LEVOTHYROXINE SODIUM 50MCG TABLET PO SCH (05:21)
[2022-06-14] MEDS: INSULIN LISPRO 100 UNITS/ML SUBCUT SCH ×4 (05:22→21:00)
[2022-06-14] MEDS: BLOOD SUGAR DIAGNOSTIC STRIP TEST SCH ×4 (05:23→20:59)
[2022-06-14 05:33] LABS: HEMOGLOBIN. 8.3 g/dL (12.0-16.0); MEAN CORPUSCULAR HEMOGLOBIN 25.5 pg (28.0-32.0); MEAN CORPUSCULAR VOLUME 80.1 fL (81.0-99.0); MEAN PLATELET VOLUME 9.7 fl (7.4-10.4); PLATELET 174 x1000/uL (130-400); RED BLOOD CELL COUNT 3.24 mill/uL (4.2-5.4); RED CELL DISTRIBUTION WIDTH 15.1 % (11.6-14.6)
[2022-06-14 06:02] LABS: CHLORIDE 103 mEq/L (98-107)
[2022-06-14 06:17] LABS: HDL CHOLESTEROL 15 mg/dL (40-59); LDL CHOLESTEROL 68 mg/dL (5-100); PHOSPHORUS 3.9 mg/dL (2.5-4.9)
[2022-06-14 10:12] LABS: PLATELET ESTIMATE NORMAL
[2022-06-14] MEDS: DOCUSATE SODIUM SUGAR FREE 100MG/10ML UDC NG SCH (13:35)
[2022-06-14] MEDS: FOLIC ACID/VITAMIN B COMP W-C TABLET PO SCH (13:36)
[2022-06-14] MEDS: INSULIN GLARGINE 100 UNITS/ML SUBCUT SCH (13:43)
[2022-06-14] MEDS: ENOXAPARIN 40MG/0.4ML SYR SUBCUT SCH (13:46)
[2022-06-14] MEDS: LIDOCAINE 5% PATCH TOP SCH (13:49)
[2022-06-14] MEDS: AZITHROMYCIN 500 MG in DEXT 5% WATER 250 ML IV SCH (13:50)
[2022-06-14] MEDS: MEROPENEM 500MG in NORMAL SALINE 50ML IV SCH (18:28)
[2022-06-14] MEDS ORDERED: INSULIN LISPRO 100 UNITS/ML SUBCUT NR (23:45)
[2022-06-14] MEDS: ATORVASTATIN CALCIUM 40MG TABLET PO SCH (23:58)
[2022-06-15] VITALS (33 sets, daily range): BP systolic 114–176; BP diastolic 33–117
[2022-06-15] MEDS: IPRATROPIUM/ALBUTEROL 0.5-3(2.5)MG/3ML NEB HHN SCH ×8 (00:46→21:21)
[2022-06-15 05:26] LABS: HEMATOCRIT. 26.8 % (36.0-48.0); HEMOGLOBIN. 8.6 g/dL (12.0-16.0); MEAN CORPUSCULAR HEMOGLOBIN 25.7 pg (28.0-32.0); MEAN CORPUSCULAR VOLUME 79.8 fL (81.0-99.0); MEAN PLATELET VOLUME 9.9 fl (7.4-10.4); PLATELET 188 x1000/uL (130-400); RED BLOOD CELL COUNT 3.36 mill/uL (4.2-5.4)
[2022-06-15 05:47] LABS: PHOSPHORUS 3.4 mg/dL (2.5-4.9)
[2022-06-15] MEDS: BLOOD SUGAR DIAGNOSTIC STRIP TEST SCH ×4 (06:30→21:09)
[2022-06-15] MEDS: LEVOTHYROXINE SODIUM 50MCG TABLET PO SCH (06:49)
[2022-06-15] MEDS: METHYLPREDNISOLONE SOD SUCC 40 MG/ML VIAL IV SCH ×3 (06:49→21:08)
[2022-06-15] MEDS: INSULIN LISPRO 100 UNITS/ML SUBCUT SCH ×6 (06:56→21:08)
[2022-06-15 10:15] LABS: PLATELET ESTIMATE NORMAL
[2022-06-15] MEDS: FOLIC ACID/VITAMIN B COMP W-C TABLET PO SCH (10:55)
[2022-06-15] MEDS: DOCUSATE SODIUM SUGAR FREE 100MG/10ML UDC NG SCH (10:55)
[2022-06-15] MEDS: ENOXAPARIN 40MG/0.4ML SYR SUBCUT SCH (10:56)
[2022-06-15] MEDS: LIDOCAINE 5% PATCH TOP SCH (10:57)
[2022-06-15] MEDS: INSULIN GLARGINE 100 UNITS/ML SUBCUT SCH (10:58)
[2022-06-15] MEDS: AZITHROMYCIN 500 MG in DEXT 5% WATER 250 ML IV SCH (13:43)
[2022-06-15] MEDS: MEROPENEM 500MG in NORMAL SALINE 50ML IV SCH (18:32)
[2022-06-15] MEDS: ATORVASTATIN CALCIUM 40MG TABLET PO SCH (21:08)
[2022-06-16] VITALS (10 sets, daily range): BP systolic 126–172; BP diastolic 68–102
[2022-06-16] MEDS: METHYLPREDNISOLONE SOD SUCC 40 MG/ML VIAL IV SCH (06:30)
[2022-06-16] MEDS: LEVOTHYROXINE SODIUM 50MCG TABLET PO SCH (07:30)
[2022-06-16] MEDS: BLOOD SUGAR DIAGNOSTIC STRIP TEST SCH ×4 (07:44→20:09)
[2022-06-16] MEDS: INSULIN LISPRO 100 UNITS/ML SUBCUT SCH ×7 (08:37→20:19)
[2022-06-16] MEDS: LIDOCAINE 5% PATCH TOP SCH (08:41)
[2022-06-16] MEDS: FOLIC ACID/VITAMIN B COMP W-C TABLET PO SCH (08:41)
[2022-06-16] MEDS: DOCUSATE SODIUM SUGAR FREE 100MG/10ML UDC NG SCH (08:41)
[2022-06-16] MEDS: ENOXAPARIN 40MG/0.4ML SYR SUBCUT SCH ×3 (08:42→08:47)
[2022-06-16] MEDS ORDERED: HYDRALAZINE 20MG/ML VIAL IV PRN (09:45)
[2022-06-16] MEDS: HYDRALAZINE 20MG/ML VIAL IV PRN ×2 (09:48→20:19)
[2022-06-16] MEDS: INSULIN GLARGINE 100 UNITS/ML SUBCUT SCH (09:49)
[2022-06-16] MEDS ORDERED: METHYLPREDNISOLONE SOD SUCC 40 MG/ML VIAL IV SCH (10:00)
[2022-06-16 11:12] LABS: HEMATOCRIT. 29.5 % (36.0-48.0); HEMOGLOBIN. 9.5 g/dL (12.0-16.0); MEAN CORPUSCULAR HEMOGLOBIN 25.4 pg (28.0-32.0); MEAN CORPUSCULAR VOLUME 78.8 fL (81.0-99.0); MEAN PLATELET VOLUME 10.6 fl (7.4-10.4); PLATELET 224 x1000/uL (130-400); RED BLOOD CELL COUNT 3.75 mill/uL (4.2-5.4); RED CELL DISTRIBUTION WIDTH 14.6 % (11.6-14.6)
[2022-06-16 11:24] LABS: CHLORIDE 92 mEq/L (98-107)
[2022-06-16 11:35] LABS: HDL CHOLESTEROL 17 mg/dL (40-59); LDL CHOLESTEROL 80 mg/dL (5-100); PHOSPHORUS 6.4 mg/dL (2.5-4.9)
[2022-06-16 12:15] LABS: NUCLEATED RED BLOOD CELLS 1 /100 WBC
[2022-06-16 12:16] LABS: PLATELET ESTIMATE NORMAL
[2022-06-16] MEDS ORDERED: LORAZEPAM 2MG/ML CPJ IV SCH (13:00)
[2022-06-16] MEDS ORDERED: NALOXONE HCL 0.4MG/ML VIAL IV PRN (15:45)
[2022-06-16] MEDS: HYDROCODONE/ACETAMINOPHEN 5/325MG TABLET PO PRN (15:52)
[2022-06-16] MEDS: MEROPENEM 500MG in NORMAL SALINE 50ML IV SCH (18:26)
[2022-06-16] MEDS: ATORVASTATIN CALCIUM 40MG TABLET PO SCH (20:19)
[2022-06-17] VITALS (11 sets, daily range): BP systolic 113–168; BP diastolic 46–92
[2022-06-17] MEDS: HYDROCODONE/ACETAMINOPHEN 5/325MG TABLET PO PRN ×3 (01:20→17:28)
[2022-06-17] MEDS: ONDANSETRON HCL 4MG/2ML INJ IV PRN ×2 (04:21→22:31)
[2022-06-17] MEDS: BLOOD SUGAR DIAGNOSTIC STRIP TEST SCH ×4 (05:30→20:40)
[2022-06-17] MEDS: LEVOTHYROXINE SODIUM 50MCG TABLET PO SCH (05:40)
[2022-06-17] MEDS: INSULIN LISPRO 100 UNITS/ML SUBCUT SCH ×7 (05:44→20:52)
[2022-06-17 07:21] LABS: HEMATOCRIT. 31.7 % (36.0-48.0); HEMOGLOBIN. 9.8 g/dL (12.0-16.0); MEAN CORPUSCULAR HEMOGLOBIN 25.4 pg (28.0-32.0); MEAN CORPUSCULAR VOLUME 81.8 fL (81.0-99.0); MEAN PLATELET VOLUME 10.8 fl (7.4-10.4); PLATELET 223 x1000/uL (130-400); RED BLOOD CELL COUNT 3.87 mill/uL (4.2-5.4)
[2022-06-17 07:28] LABS: PHOSPHORUS 7.7 mg/dL (2.5-4.9)
[2022-06-17] MEDS: DOCUSATE SODIUM SUGAR FREE 100MG/10ML UDC NG SCH (08:12)
[2022-06-17] MEDS: LIDOCAINE 5% PATCH TOP SCH (08:12)
[2022-06-17] MEDS: ENOXAPARIN 40MG/0.4ML SYR SUBCUT SCH (08:13)
[2022-06-17] MEDS: FOLIC ACID/VITAMIN B COMP W-C TABLET PO SCH (08:14)
[2022-06-17] MEDS: METHYLPREDNISOLONE SOD SUCC 40 MG/ML VIAL IV SCH (10:33)
[2022-06-17] MEDS: INSULIN GLARGINE 100 UNITS/ML SUBCUT SCH (10:35)
[2022-06-17 11:52] LABS: PLATELET ESTIMATE NORMAL
[2022-06-17] MEDS: MORPHINE SULFATE 2 MG/ML CPJ (NOT FOR IM USE) IV PRN ×3 (14:15→22:31)
[2022-06-17] MEDS: HYDRALAZINE 20MG/ML VIAL IV PRN (15:43)
[2022-06-17] MEDS: MEROPENEM 500MG in NORMAL SALINE 50ML IV SCH (17:28)
[2022-06-17] MEDS: ATORVASTATIN CALCIUM 40MG TABLET PO SCH (20:40)
[2022-06-18] VITALS (12 sets, daily range): BP systolic 122–153; BP diastolic 44–97
[2022-06-18] MEDS: MORPHINE SULFATE 2 MG/ML CPJ (NOT FOR IM USE) IV PRN ×4 (02:51→22:46)
[2022-06-18 04:07] LABS: BARBITURATE SCREEN Negative ug/mL (Cutoff:0.1); BENZODIAZEPINE SCREEN Negative ng/mL (Cutoff:20); OPIATES SCREEN ++POSITIVE++ ng/mL (Cutoff:5); PHENCYCLIDINE SCREEN Negative ng/mL (Cutoff:8)
[2022-06-18 06:45] LABS: INR 1.1; PARTIAL THROMBOPLASTIN TIME 25.3 sec (23.4-31.0); PROTHROMBIN TIME 12.1 sec (9.6-11.0)
[2022-06-18 06:55] LABS: CHLORIDE 87 mEq/L (98-107)
[2022-06-18 07:00] LABS: HEMATOCRIT. 30.3 % (36.0-48.0); HEMOGLOBIN. 9.5 g/dL (12.0-16.0); MEAN CORPUSCULAR HEMOGLOBIN 25.4 pg (28.0-32.0); MEAN CORPUSCULAR VOLUME 80.7 fL (81.0-99.0); MEAN PLATELET VOLUME 11.2 fl (7.4-10.4); PLATELET 268 x1000/uL (130-400); RED BLOOD CELL COUNT 3.75 mill/uL (4.2-5.4); RED CELL DISTRIBUTION WIDTH 14.4 % (11.6-14.6)
[2022-06-18 07:12] LABS: HDL CHOLESTEROL 20 mg/dL (40-59); LDL CHOLESTEROL 68 mg/dL (5-100)
[2022-06-18] MEDS: LEVOTHYROXINE SODIUM 50MCG TABLET PO SCH (07:24)
[2022-06-18] MEDS: BLOOD SUGAR DIAGNOSTIC STRIP TEST SCH ×4 (07:29→23:38)
[2022-06-18 07:42] LABS: PHOSPHORUS 10.1 mg/dL (2.5-4.9)
[2022-06-18] MEDS: INSULIN LISPRO 100 UNITS/ML SUBCUT SCH ×7 (08:25→23:48)
[2022-06-18] MEDS ORDERED: LIDOCAINE HCL 1% 10 MG/ML 10ML VIAL ONE ×2 (08:40→11:26)
[2022-06-18] MEDS: METHYLPREDNISOLONE SOD SUCC 40 MG/ML VIAL IV SCH (08:54)
[2022-06-18] MEDS: ENOXAPARIN 40MG/0.4ML SYR SUBCUT SCH (08:54)
[2022-06-18] MEDS: DOCUSATE SODIUM SUGAR FREE 100MG/10ML UDC NG SCH (08:54)
[2022-06-18] MEDS: FOLIC ACID/VITAMIN B COMP W-C TABLET PO SCH (08:58)
[2022-06-18] MEDS: LIDOCAINE 5% PATCH TOP SCH (08:59)
[2022-06-18 09:07] LABS: NUCLEATED RED BLOOD CELLS 1 /100 WBC; PLATELET ESTIMATE NORMAL
[2022-06-18] MEDS: INSULIN GLARGINE 100 UNITS/ML SUBCUT SCH (10:24)
[2022-06-18] MEDS ORDERED: DEXT 5%/0.9% NACL 1,000 ML IV SCH (12:00)
[2022-06-18] MEDS: MEROPENEM 500MG in NORMAL SALINE 50ML IV SCH (17:50)
[2022-06-18] MEDS ORDERED: DEXTROSE 50% WATER 50ML SYRINGE IV PRN (20:45)
[2022-06-18] MEDS ORDERED: TOTAL PARENTERAL NUTRITION 1,000 ML IV SCH (21:00)
[2022-06-19] VITALS (12 sets, daily range): BP systolic 125–154; BP diastolic 55–80
[2022-06-19] MEDS: ONDANSETRON HCL 4MG/2ML INJ IV PRN (01:49)
[2022-06-19] MEDS: MORPHINE SULFATE 2 MG/ML CPJ (NOT FOR IM USE) IV PRN ×6 (01:54→23:57)
[2022-06-19] MEDS: BLOOD SUGAR DIAGNOSTIC STRIP TEST SCH ×4 (05:39→23:47)
[2022-06-19] MEDS: INSULIN LISPRO 100 UNITS/ML SUBCUT SCH ×4 (05:43→23:55)
[2022-06-19 06:41] LABS: HEMATOCRIT. 27.7 % (36.0-48.0); HEMOGLOBIN. 8.5 g/dL (12.0-16.0); MEAN CORPUSCULAR HEMOGLOBIN 25.3 pg (28.0-32.0); MEAN CORPUSCULAR VOLUME 82.7 fL (81.0-99.0); MEAN PLATELET VOLUME 11.1 fl (7.4-10.4); PLATELET 251 x1000/uL (130-400); RED BLOOD CELL COUNT 3.35 mill/uL (4.2-5.4); RED CELL DISTRIBUTION WIDTH 14.9 % (11.6-14.6)
[2022-06-19] MEDS: LEVOTHYROXINE SODIUM 50MCG TABLET PO SCH (07:54)
[2022-06-19 08:32] LABS: PHOSPHORUS 8.2 mg/dL (2.5-4.9)
[2022-06-19] MEDS: ENOXAPARIN 40MG/0.4ML SYR SUBCUT SCH (09:32)
[2022-06-19] MEDS: FOLIC ACID/VITAMIN B COMP W-C TABLET PO SCH (09:33)
[2022-06-19] MEDS: LIDOCAINE 5% PATCH TOP SCH (09:34)
[2022-06-19] MEDS: INSULIN GLARGINE 100 UNITS/ML SUBCUT SCH (09:48)
[2022-06-19 10:57] LABS: PLATELET ESTIMATE NORMAL
[2022-06-19] MEDS ORDERED: NA PHOS,M-B/NA PHOS,DI-BA ENEMA 118ML PR PRN (12:15)
[2022-06-19] MEDS ORDERED: BISACODYL 10MG SUPP PR PRN (12:15)
[2022-06-19] MEDS ORDERED: TOTAL PARENTERAL NUTRITION 1,000 ML IV SCH (21:00)
[2022-06-19] MEDS: FAT EMULSIONS 250 ML IV SCH (21:22)
[2022-06-19] MEDS: TOTAL PARENTERAL NUTRITION 1,000 ML IV SCH (21:24)
[2022-06-20] VITALS (15 sets, daily range): BP systolic 102–154; BP diastolic 56–81
[2022-06-20] MEDS: MORPHINE SULFATE 2 MG/ML CPJ (NOT FOR IM USE) IV PRN ×5 (06:45→23:41)
[2022-06-20] MEDS: BLOOD SUGAR DIAGNOSTIC STRIP TEST SCH ×5 (06:46→23:42)
[2022-06-20 07:02] LABS: MEAN CORPUSCULAR VOLUME 81.4 fL (81.0-99.0); MEAN PLATELET VOLUME 11.5 fl (7.4-10.4); PLATELET 263 x1000/uL (130-400); RED BLOOD CELL COUNT 2.81 mill/uL (4.2-5.4); RED CELL DISTRIBUTION WIDTH 14.8 % (11.6-14.6)
[2022-06-20 07:09] LABS: CHLORIDE 88 mEq/L (98-107)
[2022-06-20 07:24] LABS: HDL CHOLESTEROL 22 mg/dL (40-59); LDL CHOLESTEROL 32 mg/dL (5-100); PHOSPHORUS 7.3 mg/dL (2.5-4.9)
[2022-06-20] MEDS: INSULIN LISPRO 100 UNITS/ML SUBCUT SCH ×8 (07:25→23:42)
[2022-06-20 08:21] LABS: HEMATOCRIT. 22.8 % (36.0-48.0)
[2022-06-20] MEDS: LIDOCAINE 5% PATCH TOP SCH (09:00)
[2022-06-20] MEDS: ENOXAPARIN 40MG/0.4ML SYR SUBCUT SCH (09:00)
[2022-06-20] MEDS: FOLIC ACID/VITAMIN B COMP W-C TABLET PO SCH (09:19)
[2022-06-20] MEDS: LEVOTHYROXINE SODIUM 50MCG TABLET PO SCH (09:19)
[2022-06-20] MEDS: DOCUSATE SODIUM SUGAR FREE 100MG/10ML UDC PO SCH (09:20)
[2022-06-20] MEDS: INSULIN GLARGINE 100 UNITS/ML SUBCUT SCH (09:21)
[2022-06-20 10:40] LABS: PLATELET ESTIMATE NORMAL
[2022-06-20 12:48] LABS: HEMOGLOBIN. 7.2 g/dL (12.0-16.0); MEAN CORPUSCULAR HEMOGLOBIN 25.6 pg (28.0-32.0); MEAN CORPUSCULAR VOLUME 81.7 fL (81.0-99.0); MEAN PLATELET VOLUME 10.9 fl (7.4-10.4); PLATELET 259 x1000/uL (130-400); RED BLOOD CELL COUNT 2.82 mill/uL (4.2-5.4)
[2022-06-20 13:12] LABS: MEAN CORPUSCULAR HEMOGLOBIN 24.8 pg (28.0-32.0)
[2022-06-20 14:18] LABS: PLATELET ESTIMATE NORMAL
[2022-06-20] MEDS: TOTAL PARENTERAL NUTRITION 1,000 ML IV SCH (19:14)
[2022-06-20] MEDS: TOTAL PARENTERAL NUTRITION 1,600 ML IV SCH (21:45)
[2022-06-20] MEDS ORDERED: METOPROLOL TARTRATE 5MG/5ML VIAL IV NR (23:15)
[2022-06-21] VITALS (12 sets, daily range): BP systolic 118–161; BP diastolic 57–80
[2022-06-21] MEDS: HYDROCODONE/ACETAMINOPHEN 5/325MG TABLET PO PRN (02:05)
[2022-06-21] MEDS: MORPHINE SULFATE 2 MG/ML CPJ (NOT FOR IM USE) IV PRN ×6 (02:49→23:28)
[2022-06-21] MEDS: INSULIN LISPRO 100 UNITS/ML SUBCUT SCH ×11 (03:44→23:29)
[2022-06-21] MEDS: BLOOD SUGAR DIAGNOSTIC STRIP TEST SCH ×6 (03:45→23:30)
[2022-06-21] MEDS: DOCUSATE SODIUM SUGAR FREE 100MG/10ML UDC PO SCH (09:00)
[2022-06-21] MEDS: LIDOCAINE 5% PATCH TOP SCH ×2 (09:00→09:18)
[2022-06-21] MEDS: FOLIC ACID/VITAMIN B COMP W-C TABLET PO SCH (09:17)
[2022-06-21] MEDS: LEVOTHYROXINE SODIUM 50MCG TABLET PO SCH (09:17)
[2022-06-21] MEDS: ENOXAPARIN 40MG/0.4ML SYR SUBCUT SCH (09:17)
[2022-06-21] MEDS ORDERED: INSULIN GLARGINE 100 UNITS/ML SUBCUT SCH (10:00)
[2022-06-21 10:54] LABS: HEMATOCRIT. 29.3 % (36.0-48.0); HEMOGLOBIN. 9.4 g/dL (12.0-16.0); MEAN CORPUSCULAR HEMOGLOBIN 26.1 pg (28.0-32.0); MEAN CORPUSCULAR VOLUME 81.8 fL (81.0-99.0); MEAN PLATELET VOLUME 10.7 fl (7.4-10.4); PLATELET 274 x1000/uL (130-400); RED BLOOD CELL COUNT 3.59 mill/uL (4.2-5.4); RED CELL DISTRIBUTION WIDTH 14.9 % (11.6-14.6)
[2022-06-21 11:30] LABS: PHOSPHORUS 6.4 mg/dL (2.5-4.9)
[2022-06-21] MEDS: MEROPENEM 500 MG in SODIUM CHLORIDE 0.9% 100 ML IV SCH (11:39)
[2022-06-21] MEDS ORDERED: DIATR MEGLU/DIATRIZOATE SOLN 30ML PO SCH (12:00)
[2022-06-21] MEDS ORDERED: LORAZEPAM 0.5MG TABLET PO NR ×2 (14:30)
[2022-06-21] MEDS ORDERED: IOHEXOL-350 100 ML BOTTLE ONE (16:34)
[2022-06-21 17:23] LABS: PLATELET ESTIMATE NORMAL
[2022-06-21] MEDS: TOTAL PARENTERAL NUTRITION 1,600 ML IV SCH (21:19)
[2022-06-22] VITALS (12 sets, daily range): BP systolic 106–143; BP diastolic 55–89
[2022-06-22] MEDS ORDERED: INSULIN LISPRO 100 UNITS/ML SUBCUT SCH
[2022-06-22] MEDS ORDERED: ACETYLCYSTEINE 100MG/ML 10% VIAL 4ML INH PRN (00:30)
[2022-06-22] MEDS: BLOOD SUGAR DIAGNOSTIC STRIP TEST SCH ×6 (04:00→23:25)
[2022-06-22] MEDS: MORPHINE SULFATE 2 MG/ML CPJ (NOT FOR IM USE) IV PRN ×6 (05:25→23:09)
[2022-06-22] MEDS: INSULIN LISPRO 100 UNITS/ML SUBCUT SCH ×10 (05:26→23:26)
[2022-06-22 07:18] LABS: HEMATOCRIT. 25.3 % (36.0-48.0); HEMOGLOBIN. 8.3 g/dL (12.0-16.0); MEAN CORPUSCULAR HEMOGLOBIN 27.1 pg (28.0-32.0); MEAN CORPUSCULAR VOLUME 82.5 fL (81.0-99.0); MEAN PLATELET VOLUME 10.6 fl (7.4-10.4); PLATELET 310 x1000/uL (130-400); RED BLOOD CELL COUNT 3.07 mill/uL (4.2-5.4); RED CELL DISTRIBUTION WIDTH 15.3 % (11.6-14.6)
[2022-06-22 07:39] LABS: PHOSPHORUS 6.5 mg/dL (2.5-4.9)
[2022-06-22] MEDS: ENOXAPARIN 40MG/0.4ML SYR SUBCUT SCH (08:31)
[2022-06-22] MEDS: FOLIC ACID/VITAMIN B COMP W-C TABLET PO SCH (08:31)
[2022-06-22] MEDS: LEVOTHYROXINE SODIUM 50MCG TABLET PO SCH (08:31)
[2022-06-22] MEDS: DOCUSATE SODIUM SUGAR FREE 100MG/10ML UDC PO SCH (08:31)
[2022-06-22] MEDS: LIDOCAINE 5% PATCH TOP SCH (08:32)
[2022-06-22] MEDS: MEROPENEM 500 MG in SODIUM CHLORIDE 0.9% 100 ML IV SCH (10:10)
[2022-06-22] MEDS: INSULIN GLARGINE 100 UNITS/ML SUBCUT SCH (10:12)
[2022-06-22] MEDS ORDERED: LIDOCAINE 2% JELLY PREFILLED SYRINGE MM NR (12:00)
[2022-06-22 12:02] LABS: PLATELET ESTIMATE NORMAL
[2022-06-22] MEDS ORDERED: MIDAZOLAM HCL 5 MG/5 ML VIAL IV PRN (13:30)
[2022-06-22] MEDS ORDERED: VISCOUS LIDOCAINE 2% 15 ML UDC MM PRN (13:30)
[2022-06-22] MEDS: FAT EMULSIONS 250 ML IV SCH (20:45)
[2022-06-22] MEDS: TOTAL PARENTERAL NUTRITION 1,600 ML IV SCH (20:46)
[2022-06-23] VITALS (13 sets, daily range): BP systolic 118–151; BP diastolic 66–86
[2022-06-23] MEDS: MORPHINE SULFATE 2 MG/ML CPJ (NOT FOR IM USE) IV PRN ×6 (02:09→20:19)
[2022-06-23] MEDS: INSULIN LISPRO 100 UNITS/ML SUBCUT SCH ×10 (04:00→20:27)
[2022-06-23] MEDS: BLOOD SUGAR DIAGNOSTIC STRIP TEST SCH ×5 (04:20→20:12)
[2022-06-23 06:26] LABS: HEMATOCRIT. 23.7 % (36.0-48.0); HEMOGLOBIN. 7.9 g/dL (12.0-16.0); MEAN CORPUSCULAR HEMOGLOBIN 27.4 pg (28.0-32.0); MEAN CORPUSCULAR VOLUME 81.9 fL (81.0-99.0); MEAN PLATELET VOLUME 9.9 fl (7.4-10.4); PLATELET 323 x1000/uL (130-400); RED CELL DISTRIBUTION WIDTH 15.1 % (11.6-14.6)
[2022-06-23 07:03] LABS: PHOSPHORUS 4.7 mg/dL (2.5-4.9)
[2022-06-23] MEDS: LEVOTHYROXINE SODIUM 50MCG TABLET PO SCH (07:30)
[2022-06-23] MEDS: ENOXAPARIN 40MG/0.4ML SYR SUBCUT SCH (08:36)
[2022-06-23] MEDS: FOLIC ACID/VITAMIN B COMP W-C TABLET PO SCH (08:36)
[2022-06-23] MEDS: DOCUSATE SODIUM SUGAR FREE 100MG/10ML UDC PO SCH (08:36)
[2022-06-23] MEDS: INSULIN GLARGINE 100 UNITS/ML SUBCUT SCH (08:38)
[2022-06-23] MEDS: LIDOCAINE 5% PATCH TOP SCH (08:49)
[2022-06-23] MEDS: LEVOTHYROXINE SODIUM 100 MCG/ VIAL IV SCH (09:20)
[2022-06-23] MEDS: MEROPENEM 500 MG in SODIUM CHLORIDE 0.9% 100 ML IV SCH (11:42)
[2022-06-23] MEDS: TOTAL PARENTERAL NUTRITION 1,600 ML IV SCH (21:16)
[2022-06-24] VITALS (11 sets, daily range): BP systolic 108–146; BP diastolic 56–96
[2022-06-24] MEDS: BLOOD SUGAR DIAGNOSTIC STRIP TEST SCH ×6 (00:36→20:41)
[2022-06-24] MEDS: INSULIN LISPRO 100 UNITS/ML SUBCUT SCH ×13 (00:45→20:50)
[2022-06-24 03:31] LABS: PLATELET ESTIMATE NORMAL
[2022-06-24] MEDS: MORPHINE SULFATE 2 MG/ML CPJ (NOT FOR IM USE) IV PRN ×6 (04:57→22:45)
[2022-06-24 06:30] LABS: HEMATOCRIT. 23.6 % (36.0-48.0); HEMOGLOBIN. 7.7 g/dL (12.0-16.0); MEAN CORPUSCULAR VOLUME 82.6 fL (81.0-99.0); MEAN PLATELET VOLUME 10.2 fl (7.4-10.4); PLATELET 339 x1000/uL (130-400); RED BLOOD CELL COUNT 2.86 mill/uL (4.2-5.4); RED CELL DISTRIBUTION WIDTH 15.7 % (11.6-14.6)
[2022-06-24 06:42] LABS: CHLORIDE 101 mEq/L (98-107)
[2022-06-24 06:55] LABS: HDL CHOLESTEROL 20 mg/dL (40-59); LDL CHOLESTEROL 35 mg/dL (5-100); PHOSPHORUS 5.6 mg/dL (2.5-4.9)
[2022-06-24] MEDS: LEVOTHYROXINE SODIUM 100 MCG/ VIAL IV SCH (07:37)
[2022-06-24] MEDS: INSULIN GLARGINE 100 UNITS/ML SUBCUT SCH (07:39)
[2022-06-24] MEDS: LIDOCAINE 5% PATCH TOP SCH (07:43)
[2022-06-24] MEDS: FOLIC ACID/VITAMIN B COMP W-C TABLET PO SCH (08:27)
[2022-06-24] MEDS: ENOXAPARIN 40MG/0.4ML SYR SUBCUT SCH (08:27)
[2022-06-24] MEDS: DOCUSATE SODIUM SUGAR FREE 100MG/10ML UDC PO SCH (08:27)
[2022-06-24] MEDS: MEROPENEM 500 MG in SODIUM CHLORIDE 0.9% 100 ML IV SCH (11:23)
[2022-06-24 16:18] LABS: PLATELET ESTIMATE NORMAL
[2022-06-24] MEDS: TOTAL PARENTERAL NUTRITION 1,600 ML IV SCH (20:49)
[2022-06-24] MEDS ORDERED: DEXTROSE 50% WATER 50ML SYRINGE IV PRN (22:00)
[2022-06-25] VITALS (15 sets, daily range): BP systolic 121–159; BP diastolic 59–91
[2022-06-25] MEDS: BLOOD SUGAR DIAGNOSTIC STRIP TEST SCH ×5 (00:33→23:51)
[2022-06-25] MEDS: INSULIN REGULAR HUMAN (MEDIUM DOSE) 100 UNITS/ML 3ML VIAL SUBCUT SCH ×5 (00:41→23:50)
[2022-06-25] MEDS: INSULIN REGULAR (HUMULIN R) 300UNITS/3ML VIAL SUBCUT SCH ×5 (00:42→23:50)
[2022-06-25] MEDS: MORPHINE SULFATE 2 MG/ML CPJ (NOT FOR IM USE) IV PRN ×6 (03:30→22:01)
[2022-06-25 06:35] LABS: MEAN CORPUSCULAR HEMOGLOBIN 26.1 pg (28.0-32.0); MEAN CORPUSCULAR VOLUME 83.3 fL (81.0-99.0); MEAN PLATELET VOLUME 9.9 fl (7.4-10.4); PLATELET 306 x1000/uL (130-400); RED BLOOD CELL COUNT 2.68 mill/uL (4.2-5.4); RED CELL DISTRIBUTION WIDTH 15.7 % (11.6-14.6)
[2022-06-25 06:40] LABS: HEMATOCRIT. 22.3 % (36.0-48.0)
[2022-06-25] MEDS: DOCUSATE SODIUM SUGAR FREE 100MG/10ML UDC PO SCH (08:22)
[2022-06-25] MEDS: FOLIC ACID/VITAMIN B COMP W-C TABLET PO SCH (08:22)
[2022-06-25] MEDS: LEVOTHYROXINE SODIUM 100 MCG/ VIAL IV SCH (08:23)
[2022-06-25] MEDS: ENOXAPARIN 40MG/0.4ML SYR SUBCUT SCH (08:23)
[2022-06-25] MEDS: LIDOCAINE 5% PATCH TOP SCH (08:23)
[2022-06-25] MEDS: MEROPENEM 500 MG in SODIUM CHLORIDE 0.9% 100 ML IV SCH (10:41)
[2022-06-25] MEDS: INSULIN GLARGINE 100 UNITS/ML SUBCUT SCH (10:41)
[2022-06-25 18:05] LABS: PLATELET ESTIMATE NORMAL
[2022-06-25] MEDS ORDERED: LIDOCAINE 5% PATCH TOP NR (18:30)
[2022-06-25 19:26] LABS: HEMATOCRIT 25.9 % (36.0-48.0); HEMOGLOBIN 8.2 g/dL (12.0-16.0)
[2022-06-25 19:48] LABS: INR 1.1; PROTHROMBIN TIME 11.5 sec (9.6-11.0)
[2022-06-25] MEDS: TOTAL PARENTERAL NUTRITION 1,600 ML IV SCH (21:45)
[2022-06-26] VITALS (12 sets, daily range): BP systolic 76–153; BP diastolic 45–83
[2022-06-26] MEDS: MORPHINE SULFATE 2 MG/ML CPJ (NOT FOR IM USE) IV PRN ×3 (03:14→13:50)
[2022-06-26] MEDS: INSULIN REGULAR (HUMULIN R) 300UNITS/3ML VIAL SUBCUT SCH ×3 (05:04→18:59)
[2022-06-26] MEDS: BLOOD SUGAR DIAGNOSTIC STRIP TEST SCH ×3 (05:05→18:55)
[2022-06-26] MEDS: INSULIN REGULAR HUMAN (MEDIUM DOSE) 100 UNITS/ML 3ML VIAL SUBCUT SCH ×3 (05:05→18:59)
[2022-06-26 06:38] LABS: MEAN CORPUSCULAR HEMOGLOBIN 27.3 pg (28.0-32.0); MEAN CORPUSCULAR VOLUME 85.1 fL (81.0-99.0); MEAN PLATELET VOLUME 9.3 fl (7.4-10.4); PLATELET 297 x1000/uL (130-400); RED BLOOD CELL COUNT 2.93 mill/uL (4.2-5.4); RED CELL DISTRIBUTION WIDTH 15.7 % (11.6-14.6)
[2022-06-26 08:27] LABS: CHLORIDE 104 mEq/L (98-107); HDL CHOLESTEROL 18 mg/dL (40-59); LDL CHOLESTEROL 37 mg/dL (5-100)
[2022-06-26] MEDS ORDERED: LIDOCAINE 5% PATCH TOP SCH (09:00)
[2022-06-26] MEDS: INSULIN GLARGINE 100 UNITS/ML SUBCUT SCH (10:00)
[2022-06-26] MEDS: LEVOTHYROXINE SODIUM 100 MCG/ VIAL IV SCH (12:36)
[2022-06-26] MEDS: MEROPENEM 500 MG in SODIUM CHLORIDE 0.9% 100 ML IV SCH (12:37)
[2022-06-26] MEDS: DOCUSATE SODIUM SUGAR FREE 100MG/10ML UDC PO SCH (12:38)
[2022-06-26] MEDS: ENOXAPARIN 40MG/0.4ML SYR SUBCUT SCH (12:38)
[2022-06-26] MEDS: FOLIC ACID/VITAMIN B COMP W-C TABLET PO SCH (12:50)
[2022-06-26] MEDS ORDERED: MORPHINE SULFATE 2 MG/ML CPJ (NOT FOR IM USE) IV PRN (17:56)
[2022-06-26] MEDS: IPRATROPIUM/ALBUTEROL 0.5-3(2.5)MG/3ML NEB HHN SCH (20:51)
[2022-06-26 21:23] LABS: PLATELET ESTIMATE NORMAL
[2022-06-26] MEDS ORDERED: ALBUMIN HUMAN 25GM/100ML (25%) IV NR (21:30)
[2022-06-26] MEDS: FAT EMULSIONS 250 ML IV SCH (21:58)
[2022-06-26] MEDS: TOTAL PARENTERAL NUTRITION 1,600 ML IV SCH (21:59)
[2022-06-27] VITALS (24 sets, daily range): BP systolic 44–121; BP diastolic 24–84
[2022-06-27] MEDS: BLOOD SUGAR DIAGNOSTIC STRIP TEST SCH ×2 (00:16→06:00)
[2022-06-27] MEDS: PHENYLEPHRINE 100 MG in DEXT 5% WATER 240 ML IV PRN ×2 (00:57→08:27)
[2022-06-27 02:26] LABS: BG FRACTION INSPIRED OXYGEN 100; BG HCO3 ACT 11.1 mmol/L (22.0-26.0); BG PCO2 40.5 mmHg (35.0-45.0); BG PH 7.055 (7.350-7.450); BG PO2 382.4 mmHg (75.0-100.0); BG SAMPLE SITE RIGHT BRACHIAL; BG TOTAL HEMOGLOBIN < 4.5 g/dL (12.0-18.0); BG TOTAL RESPIRATORY RATE 32 b/min; BG VENT MODE MASK - BIPAP
[2022-06-27] MEDS ORDERED: SODIUM BICARBONATE 8.4% 1 MEQ/ML 50ML SYR IV NR (03:15)
[2022-06-27] MEDS: INSULIN REGULAR (HUMULIN R) 300UNITS/3ML VIAL SUBCUT SCH ×2 (06:00)
[2022-06-27] MEDS: INSULIN REGULAR HUMAN (MEDIUM DOSE) 100 UNITS/ML 3ML VIAL SUBCUT SCH ×2 (06:00)
[2022-06-27 06:28] LABS: CHLORIDE 107 mEq/L (98-107)
[2022-06-27 06:39] LABS: HDL CHOLESTEROL 8 mg/dL (40-59); LDL CHOLESTEROL 20 mg/dL (5-100); PHOSPHORUS 5.4 mg/dL (2.5-4.9)
[2022-06-27] MEDS ORDERED: NOREPINEPHRINE 32 MG in DEXT 5% WATER 218 ML IV PRN (07:00)
[2022-06-27] MEDS: LEVOTHYROXINE SODIUM 100 MCG/ VIAL IV SCH (07:14)
[2022-06-27] MEDS: IPRATROPIUM/ALBUTEROL 0.5-3(2.5)MG/3ML NEB HHN SCH ×2 (08:10)
[2022-06-27 08:29] LABS: BG HCO3 ACT 9.3 mmol/L (22.0-26.0); BG PH 6.954 (7.350-7.450); BG PO2 336.5 mmHg (75.0-100.0); BG SAMPLE SITE RIGHT RADIAL; BG TOTAL HEMOGLOBIN < 4.5 g/dL (12.0-18.0); BG VENT MODE MASK - BIPAP
[2022-06-27] MEDS ORDERED: VASOPRESSIN 20 UNIT in SODIUM CHLORIDE 0.9% 99 ML IV PRN (08:45)
[2022-06-27] MEDS ORDERED: SODIUM BICARBONATE 8.4% 1 MEQ/ML 50ML SYR IV ONE (08:51)
[2022-06-27] MEDS ORDERED: EPINEPHRINE 0.1MG/ML (1:10,000) 10ML SYR ONE (08:51)
[2022-06-27] MEDS ORDERED: AMIODARONE HCL 50MG/ML 3ML VIAL IV ONE (08:51)
[2022-06-27] MEDS ORDERED: CALCIUM CHLORIDE 1GM/10ML SYR IV ONE (08:51)
[2022-06-27] MEDS ORDERED: ETOMIDATE 2MG/ML 10ML VIAL IV ONE (10:02)
[2022-06-27] MEDS ORDERED: SUCCINYLCHOLINE CHLORIDE 200MG/10ML IV ONE (10:02)
== END 2022-06-27 12:40 | DRG 871 ==
LOC: ER 03:39 → 6EST 08:57 → ENRESERV 09:42 → SUPCPDRO 10:06 → 7WST 06-07 11:34 → MICUNO 06-09 15:18 → 5EST 06-15 20:32 → MICUSO 06-27 01:40
PROVIDERS: ADMIT Internal Medicine; ATTEND Internal Medicine
PROC: 5A1D70Z Performance of Urinary Filtration, Intermittent, Less than 6 Hours Per Day (ICD-10-PCS; 2022-06-09)
PROC: 02HV33Z Insertion of Infusion Device into Superior Vena Cava, Percutaneous Approach (ICD-10-PCS; 2022-06-09)
PROC: B548ZZA Ultrasonography of Superior Vena Cava, Guidance (ICD-10-PCS; 2022-06-09)
PROC: 5A0955A Assistance with Respiratory Ventilation, Greater than 96 Consecutive Hours, High Flow/Velocity Cannula (ICD-10-PCS; 2022-06-09)
PROC: 5A1D70Z Performance of Urinary Filtration, Intermittent, Less than 6 Hours Per Day (ICD-10-PCS; 2022-06-10)
PROC: 5A1D70Z Performance of Urinary Filtration, Intermittent, Less than 6 Hours Per Day (ICD-10-PCS; principal; 2022-06-11)
PROC: 5A1D70Z Performance of Urinary Filtration, Intermittent, Less than 6 Hours Per Day (ICD-10-PCS; 2022-06-12)
PROC: 5A1D70Z Performance of Urinary Filtration, Intermittent, Less than 6 Hours Per Day (ICD-10-PCS; 2022-06-13)
PROC: 5A1D70Z Performance of Urinary Filtration, Intermittent, Less than 6 Hours Per Day (ICD-10-PCS; 2022-06-14)
PROC: 5A1D70Z Performance of Urinary Filtration, Intermittent, Less than 6 Hours Per Day (ICD-10-PCS; 2022-06-15)
PROC: 5A1D70Z Performance of Urinary Filtration, Intermittent, Less than 6 Hours Per Day (ICD-10-PCS; 2022-06-16)
PROC: 5A1D70Z Performance of Urinary Filtration, Intermittent, Less than 6 Hours Per Day (ICD-10-PCS; 2022-06-18)
PROC: 3E0336Z Introduction of Nutritional Substance into Peripheral Vein, Percutaneous Approach (ICD-10-PCS; 2022-06-18)
PROC: 05HY33Z Insertion of Infusion Device into Upper Vein, Percutaneous Approach (ICD-10-PCS; 2022-06-18)
PROC: B54MZZA Ultrasonography of Right Upper Extremity Veins, Guidance (ICD-10-PCS; 2022-06-18)
PROC: 5A1D70Z Performance of Urinary Filtration, Intermittent, Less than 6 Hours Per Day (ICD-10-PCS; 2022-06-20)
PROC: 30233N1 Transfusion of Nonautologous Red Blood Cells into Peripheral Vein, Percutaneous Approach (ICD-10-PCS; 2022-06-20)
PROC: 5A1D70Z Performance of Urinary Filtration, Intermittent, Less than 6 Hours Per Day (ICD-10-PCS; 2022-06-22)
PROC: 5A1D70Z Performance of Urinary Filtration, Intermittent, Less than 6 Hours Per Day (ICD-10-PCS; 2022-06-24)
PROC: 5A09357 Assistance with Respiratory Ventilation, Less than 24 Consecutive Hours, Continuous Positive Airway Pressure (ICD-10-PCS; 2022-06-26)
PROC: 5A12012 Performance of Cardiac Output, Single, Manual (ICD-10-PCS; 2022-06-27)
PROC: 5A2204Z Restoration of Cardiac Rhythm, Single (ICD-10-PCS; 2022-06-27)
PROC: 0BH17EZ Insertion of Endotracheal Airway into Trachea, Via Natural or Artificial Opening (ICD-10-PCS; 2022-06-27)
PROC: 5A1935Z Respiratory Ventilation, Less than 24 Consecutive Hours (ICD-10-PCS; 2022-06-27)
DX: A41.9 Sepsis, unspecified organism (principal); E43 Unspecified severe protein-calorie malnutrition; G92.8 Other toxic encephalopathy; J96.01 Acute respiratory failure with hypoxia; N17.0 Acute kidney failure with tubular necrosis; K85.21 Alcohol induced acute pancreatitis with uninfected necrosis; J18.9 Pneumonia, unspecified organism; E87.1 Hypo-osmolality and hyponatremia; R18.8 Other ascites; R57.9 Shock, unspecified; E87.2 Acidosis; K31.1 Adult hypertrophic pyloric stenosis; Z68.41 Body mass index [BMI] 40.0-44.9, adult; K56.609 Unspecified intestinal obstruction, unspecified as to partial versus complete obstruction; N39.0 Urinary tract infection, site not specified; K86.3 Pseudocyst of pancreas; E03.9 Hypothyroidism, unspecified; E78.00 Pure hypercholesterolemia, unspecified; K29.80 Duodenitis without bleeding; K76.0 Fatty (change of) liver, not elsewhere classified; M10.9 Gout, unspecified; E11.65 Type 2 diabetes mellitus with hyperglycemia; E66.01 Morbid (severe) obesity due to excess calories; E78.1 Pure hyperglyceridemia; E83.51 Hypocalcemia; E87.5 Hyperkalemia; F17.210 Nicotine dependence, cigarettes, uncomplicated; M54.50 Low back pain, unspecified; F40.240 Claustrophobia; G89.29 Other chronic pain; I10 Essential (primary) hypertension; D50.9 Iron deficiency anemia, unspecified; E87.70 Fluid overload, unspecified; E83.52 Hypercalcemia; R20.2 Paresthesia of skin; F41.9 Anxiety disorder, unspecified; I45.10 Unspecified right bundle-branch block; I46.9 Cardiac arrest, cause unspecified; J45.909 Unspecified asthma, uncomplicated; F10.10 Alcohol abuse, uncomplicated; Z20.822 Contact with and (suspected) exposure to COVID-19; Z79.4 Long term (current) use of insulin; Z90.49 Acquired absence of other specified parts of digestive tract; Z90.711 Acquired absence of uterus with remaining cervical stump; Z80.41 Family history of malignant neoplasm of ovary; Z82.49 Family history of ischemic heart disease and other diseases of the circulatory system; Z83.3 Family history of diabetes mellitus; Z79.899 Other long term (current) drug therapy; Z98.891 History of uterine scar from previous surgery; Z99.2 Dependence on renal dialysis; Z88.6 Allergy status to analgesic agent
CPT/HCPCS: 36415; 36556; 36573; 36600; 70551; 71045; 71250; 71275; 74018; 74176; 74177; 76700; 76770; 76937; 80048; 80053; 80061; 80076; 80305; 80307; 80320; 81003; 82140; 82306; 82330; 82375; 82550; 82570; 82728; 82805; 82962; 83036; 83540; 83550; 83605; 83735; 83970; 84100; 84134; 84145; 84156; 84443; 84478; 84484; 84703; 85014; 85018; 85025; 85049; 85384; 86705; 86709; 86803; 86850; 86900; 86920; 87340; 87426; 93005; 93306; 93970; 94640; 94660; 97110; 97161; 97162; 97164; 97530; 99285; C1725; C1752; C1887; J0282; J0330; J0360; J0456; J0610; J0692; J1650; J1815; J1885; J2060; J2185; J2270; J2370; J2405; J2920; J3475; J3480; J3490; J7030; J7050; J7060; J7070; J7131; J7608; L8514; P9016; P9047; Q9963; Q9967; G0480